=== PATIENT | female | born 1925 | race Caucasian/White ===

== ENCOUNTER 2017-02-13 17:36 | Emergency (ER) | payer OTHER, MEDICARE ==
[~2017-02-13] VITALS: Ht 162.6 cm; Wt 65.8 kg
[~2017-02-13 17:36] MED LIST: ADVAIR 500-501 EACH INH; ASPIRIN81 M4 PO; BETAPACE80 MG PO; FEMARA2.5 M1 PO; LASIX40 M1 PO; NEURONTIN100 M1 PO; OMEPRAZOLE40 M1 PO; PLAVIX75 M1 PO; SIMVASTATIN40 M1 PO; XARELTO15 M1 PO
--- NOTE | 2017-02-13 17:38 | ED CARDIAC/CP/PALPITATIONS ---
History of Present Illness General Chief Complaint: General Adult Stated Complaint: BIBA FOR EVAL ELEVATED HEART RATE PER FACILTY Source: patient, old records, EMS Exam Limitations: no limitations Vital Signs & Intake/Output Vital Signs & Intake/Output Vital Signs Date Time Temp Pulse Resp B/P Pulse O2 O2 Flow FiO2 Ox Delivery Rate 02/13 2206 98.0 88 18 107/64 97 Room Air 02/13 2000 97.0 92 20 122/76 97 Room Air 02/13 1749 98 02/13 1739 99.0 88 18 110/578 97 Room Air Allergies Coded Allergies: acetaminophen (From PERCOCET) (UNSURE OF REACTION 08/14/16) oxycodone (From PERCOCET) (UNSURE OF REACTION 08/14/16) Reconcile Medications Calcium Carbonate (Calcium) 500 MG CALCIUM (1,250 MG) TABLET 1,000 MG PO DAILY SUPPLEMENT (Reported) Furosemide (Lasix) 40 MG TABLET 80 MG PO BID FLUID OVERLOAD (Reported) Gabapentin (Neurontin) 100 MG CAPSULE 1 CAP PO TID NEUROPATHY (Reported) Letrozole (Femara) 2.5 MG TABLET 1 TAB PO DAILY CHEMO (Reported) Omeprazole 40 MG CAPSULE.DR 1 CAP PO DAILY GERD (Reported) Potassium Chloride 20 MEQ TAB.ER.PRT 1 TAB PO AD SUPPLEMENT (Reported) Rivaroxaban (Xarelto) 15 MG TABLET 1 TAB PO DAILY BLOOD THINNER (Reported) Simvastatin (Simvastatin*) 40 MG TABLET 1 TAB PO QPM CHOLESTROL (Reported) Sotalol (Betapace) 80 MG TABLET 40 MG PO QPM HEART (Reported) Sotalol (Betapace) 80 MG TABLET 80 MG PO QAM AFIB (Reported) Spironolactone 25 MG TABLET 1 TAB PO DAILY DIURETIC (Reported) Triage Nurses Notes Reviewed? yes Onset: Abrupt Duration: day(s): (1), better, resolved prior to arrival Timing: single episode today Quality/Severity: mild Location: central Radiation: no radiation Activities at Onset: none Prior Chest Pain/Card Workup: NSTEMI Aspirin Today: provided at home Associated Symptoms: DENIES HPI: 89 Year old female past medical history significant for nstemi in august 2016, CHF, Afib on Xarelto, HLD, lung cancer s/p left upper lobe lobectomy, breast cancer s/p lumpectomy s/p right BKA with prosthesis who presents brought in by ambulance after the visiting nurse noted the patient had a heart rate in the 120s. The patient states that she denies palpitations dizziness chest pain shortness of breath. She states she's been in normal state of health and states that she wants to go home. She denies any fevers chills. Her equipment installer is Dr. Gray. Per EMS the patient's heart rate was in the 70s during transport. She is currently normal sinus in the 80s (TULIO MUNROE) Past History Travel History Traveled to [place] past 21 day No Medical History Any Pertinent Medical History? 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 History of MRSA: No History of VRE: No History of CDIFF: No Influenza Vaccine: 07/28/16 Surgical History Surgical History: right mastectomy for breast CA left upper lobe lobectomy for lung cancer right shoulder surgery right BKA with prosthesis secondary to trauma Psychosocial History Who do you live with Patient/Self Services at Home Home Health Aide, Nursing, Physical Therapy What is your primary language Irish Family History Family History, If Any: FATHER ([place]). . Hx Contributory? No (TULIO MUNROE) Review of Systems Review of Systems Constitutional: Reports: see HPI. All Other Systems: Reviewed and Negative Comments Review of systems: See HPI, all other systems negative. Constitutional, no chills, no fever, no weight loss. HEENT: No visual changes, no sore throat, no congestion, Cardiovascular: No chest pain, no palpitations, no orthopnea, or ankle swelling. Skin: No jaundice, no rashes Respiratory, no dyspnea, cough, sputum, or hemoptysis GI no nausea, no vomiting no dysuria, no hematuria, Muscle skeletal: No back pain, no neck pain Neurologic, no numbness no confusion Psych: No stress, anxiety, depression Heme/endocrine: No bruising, no bleeding polyuria Immunology: No splenectomy (TULIO MUNROE) Physical Exam Physical Exam General Appearance: well developed/nourished, no apparent distress, alert, awake Cardiovascular: regular rate/rhythm, normal peripheral pulses Comments: Well-developed well-nourished person in no acute distress HEENT: Normal EENT exam; PERRL, EOMI, HEAD is atraumatic. moist mucous membranes. Neck: Supple, no lymphadenopathy, normal range of motion Back: Nontender Full range of motion Cardiovascular: Regular rate and rhythms no murmurs rubs Respiratory: Chest nontender.There were no bony deformities, no asymmetry. No respiratory distress. Patient speaking in full complete sentences. Breath sounds clear to auscultation bilaterally: NO W/R/R Abdomen: Soft, nontender nondistended, no appreciable organomegaly. Normal bowel sounds. No rebound/guarding, Extremity: No edema, full range of motion of extremities, normal and equal pulses bilaterally, 5 out of 5 strength noted to bilateral upper AND LEFT lower extremities Neuro: Alert oriented x3, motor sensory normal, There were no obvious focal neurologic abnormalities. Skin: No appreciable rash on exposed skin, skin is warm and dry. Psych: Mood and affect is normal, memory and judgment is normal. Core Measures ACS in differential dx? Yes Severe Sepsis Present: No Septic Shock Present: No (TULIO MUNROE) Progress Differential Diagnosis: AMI, atrial fibrillation, CHF/pulm edema, costochondritis, musculoskeletal pain, myocarditis, pericarditis, pneumonia, pneumothorax, PSVT, pulmonary embolism, unstable angina Plan of Care: Orders Procedure Date/time Status Regular Diet 02/14 B Active TROPONIN LEVEL 02/13 2200 Complete EKG 02/13 2200 Active Telemetry/Optical Effects Line Up Person 02/13 180 Active TROPONIN LEVEL 02/13 175 Complete PROTHROMBIN TIME 02/13 175 Complete COMPREHENSIVE METABOLIC PANEL 02/13 175 Complete CBC WITHOUT DIFFERENTIAL 02/13 175 Complete EKG 02/13 1741 Active Laboratory Tests 02/13/17 2200: Troponin I 0.08 02/13/17 180: Anion Gap 8, Estimated GFR 52 L, BUN/Creatinine Ratio 20.0, Glucose 94, Calcium 9.3, Total Bilirubin 0.3, AST 32, ALT 34, Alkaline Phosphatase 121, Troponin I 0.07, Total Protein 6.4, Albumin 3.6, Globulin 2.8, Albumin/Globulin Ratio 1.3, PT 11.8, INR 1.13, CBC w Diff NO MAN DIFF REQ, RBC 4.54, MCV 85.0, MCH 28.3, RDW 15.4 H, MPV 9.7, Gran % 66.8, Lymphocytes % 18.5 L, Monocytes % 11.4 H, Eosinophils % 2.9, Basophils % 0.4, Absolute Granulocytes 4.1, Absolute Lymphocytes 1.1 L, Absolute Monocytes 0.7 H, Absolute Eosinophils 0.2, Absolute Basophils 0, PUBS MCHC 33.3 Labs ordered old records reviewed patient resting in no apparent distress case in EKG reviewed with Dr. Perez who agrees with plan I discussed the patient at length need for repeat blood tests repeat troponin at 10:00. She is in agreement with 02/13/2017 7:50:20 PM I discussed the case with Dr. Gray who agrees with plan I will call him back if her troponin trend upwards. Case was discussed with Dr. Madsen. Patient remains a symptomatically at this time is normal sinus in the 80s with a brief episode of sinus tachycardia into the 100s 110s 02/13/2017 8:35:09 PM patient remains normal sinus in the 80s without any complaints pending repeat troponin EKG 02/13/2017 10:46:33 PM I discussed with the patient her repeat troponin, EKG findings need for close follow-up with her primary care physician reagridng sodium level as well as her equipment installer Dr. Gray this week the patient remains normal sinus in the 80s on the monitor (NABIL CAMPBELL,TULIO) Diagnostic Imaging: Viewed by Me: Radiology Read. Discussed w/RAD: Radiology Read. Radiology Impression: PATIENT: LARS MUHAMMAD PRESENT AGE: 89 PATIENT ACCOUNT NO: [id number] : [birth year] LOCATION: [facility] ORDERING PHYSICIAN: TULIO CAMPBELL SERVICE DATE: 02/13/17 EXAM TYPE: RAD - XRY- PORTABLE CHEST XRAY EXAMINATION: CHEST 1 VIEW CLINICAL INFORMATION: Cardiomegaly. Palpitations. COMPARISON: 09/19/2016. TECHNIQUE: An AP view of the chest is provided. FINDINGS: The cardiac silhouette is enlarged, but stable. There are neither pleural effusions nor pneumothoraces. There are no consolidations. The osseous structures are stable. IMPRESSION: Stable cardiomegaly without acute airspace disease. DICTATED BY: EDUARDO GONSALES MD DATE /TIME DICTATED:02/13/171912 VOLUNTEER SERVICES SPECIALIST:DELLA DATE/TIME TRANSCRIBED: 02/13/171912 CONFIDENTIAL, DO NOT COPY WITHOUT APPROPRIATE AUTHORIZATION. < Electronically signed in Other Vendor System> SIGNED BY: EDUARDO GONSALES MD 02/13/171916 Initial ED EKG: nsr at [address] seg changes, rad, normal intervals Prior EKG: unchanged (08/2016) Rhythm Strip: normal sinus rhythm (TULIO MUNROE) Departure Departure Time of Disposition: 2240 Disposition: HOME OR SELF CARE Condition: Stable Clinical Impression Primary Impression: Palpitations Secondary Impressions: Hyponatremia Referrals: SUKHDEV EL MD (PCP/Family) GISELL WORRELL PhD,RUBÉN Duke Additional Instructions: Follow up with her primary care physician this week. As discussed her sodium level was low today. Follow-up with your equipment installer Dr. Gray tomorrow. Return to the emergency room anytime sooner with any concerns Departure Forms: Customer Survey General Discharge Information (TULIO MUNROE) PA/MANAGER PERFORMANCE Co-Sign Statement Statement: ED Attending supervision documentation- [] I saw and evaluated the patient. I have also reviewed all the pertinent lab results and diagnostic results. I agree with the findings and the plan of care as documented in the PA's/MANAGER PERFORMANCE's documentation. [x] I have reviewed the ED Record and agree with the PA's/MANAGER PERFORMANCE's documentation. [] Additions or exceptions (if any) to the PAs/MANAGER PERFORMANCE's note and plan are summarized below: [] (CHIVO WORRELL,JENIFER Macdonald) Critical Care Note Critical Care Note Critical Care Time: non-applicable (TULIO MUNROE)
[2017-02-13 18:22] LABS: ABSOLUTE BASOPHIL COUNT 0 /CUMM (0.0-0.2); ABSOLUTE EOSINOPHIL COUNT 0.2 /CUMM (0.0-0.7); ABSOLUTE GRANULOCYTE CT 4.1 /CUMM (1.4-6.5); ABSOLUTE LYMPH COUNT 1.1 /CUMM (1.2-3.4); ABSOLUTE MONOCYTE COUNT 0.7 /CUMM (0.10-0.60); BASOPHIL % 0.4 % (0.0-2.0); EOSINOPHIL % 2.9 % (0-5); GRANULOCYTE % 66.8 % (42.2-75.2); HEMATOCRIT 38.6 % (37-47); MEAN CORPUSCULAR HGB 28.3 PG (27.0-31.0); MEAN CORPUSCULAR HGB CONC 33.3 G/DL (33.0-37.0); MEAN PLATELET VOLUME 9.7 FL (7.4-10.4); PLATELET COUNT 271 /CUMM (130-400); RBC DISTRIBUTION WIDTH 15.4 % (11.5-14.5); RED BLOOD CELL CT 4.54 /CUMM (4.20-5.40); WHITE BLOOD CELL COUNT 6.2 /CUMM (4.8-10.8)
[2017-02-13 18:23] LABS: PT 11.8 SEC (9.4-12.5)
[2017-02-13] MEDS ORDERED: POTASSIUM CHLO20 ME2 PO (18:26)
[2017-02-13] MEDS ORDERED: SPIRONOLACTONE25 M1 PO (18:26)
[2017-02-13] MEDS ORDERED: XARELTO15 M2 PO (18:26)
[2017-02-13] MEDS ORDERED: CALCIUM500 M1 PO (18:27)
--- NOTE | 2017-02-13 19:17 | RADIOLOGY REPORT ---
EXAMINATION: CHEST 1 VIEW CLINICAL INFORMATION: Cardiomegaly. Palpitations. COMPARISON: 09/19/2016. TECHNIQUE: An AP view of the chest is provided. FINDINGS: The cardiac silhouette is enlarged, but stable. There are neither pleural effusions nor pneumothoraces. There are no consolidations. The osseous structures are stable. IMPRESSION: Stable cardiomegaly without acute airspace disease.
[2017-02-13 22:06] VITALS: BP 107/64
== END 2017-02-13 23:22 ==
LOC: ERH 17:36
PROVIDERS: Physician Assistant Medical
DX: E87.1 Hypo-osmolality and hyponatremia (principal); I48.91 Unspecified atrial fibrillation; Z79.01 Long term (current) use of anticoagulants
CPT/HCPCS: 93005; 93010; J7040